=== PATIENT | male | born 1980 | race Caucasian/White ===

== ENCOUNTER 2024-06-30 09:15 | Outpatient (RCR) | payer BC, SELFPAY ==
[2024-06-23 09:35] VITALS: BMI 27.6
== END 2024-09-06 11:12 | disposition home or self-care (01) ==
LOC: ANHDMC 09:15
PROVIDERS: Visit Provider Internal Medicine
DX: E11.9 Type 2 diabetes mellitus without complications (principal); Z71.3 Dietary counseling and surveillance; Z71.89 Other specified counseling
CPT/HCPCS: 97802; G0108